=== PATIENT | male | born 1985 | race Caucasian/White ===

== ENCOUNTER 2019-05-25 11:17 | Emergency (ER) | payer BC, OTHER ==
[2019-05-25] MEDS ORDERED: ONDANSETRON HCL INJ/PF 4 MG/2 ML SDV IV ONE (11:57)
[2019-05-25] MEDS ORDERED: NORMAL SALINE 1000 ML 1,000 ML IV ONE (11:57)
[2019-05-25] MEDS ORDERED: KETOROLAC TROMETHAMINE INJ/PF 30 MG/1 ML SDV IV ONE (11:57)
--- NOTE | 2019-05-25 11:59 | ER Document Report ---
ED Medical Screen (RME) - General Chief Complaint: Abdominal Pain Stated Complaint: ABDOMINAL PAIN Time Seen by Provider: 05/25/19 11:54 Primary Care Provider: LG TIDWELL [Primary Care Provider] - Follow up as needed Mode of Arrival: Ambulatory Information source: Patient Notes: 33-year-old male patient presents emergency department with chief complaint of left flank pain that radiates around to the left upper and left lower quadrant of the abdomen. He reports occasional chills but denies any known fevers. Denies current nausea vomiting or diarrhea but reports 2 days ago he was vomiting. He states this pain initially started a few days ago however it ended up resolving on its own and has returned today. He does report a history of kidney stones, states this feels different. I have greeted and performed a rapid initial assessment of this patient. A comprehensive ED assessment and evaluation of the patient, analysis of test results and completion of the medical decision making process will be conducted by additional ED providers. I have specifically instructed the patient or family members with the patient to immediately return to any nursing staff should anything change in the patient's condition or with their chief complaint. - Related Data Allergies/Adverse Reactions: No Known Allergies Allergy (Verified 05/25/19 11:54) Physical Exam - Vital signs Vitals: Temp Pulse Resp BP Pulse Ox 97.6 F 59 L 16 148/93 H 100 05/25/19 11:25 05/25/19 11:05/25/19 11:05/25/19 11:05/25/19 11:25 Course - Vital Signs Vital signs: Temp Pulse Resp BP Pulse Ox 97.6 F 59 L 16 148/93 H 100 05/25/19 11:25 05/25/19 11:25 05/25/19 11:05/25/19 11:05/25/19 11:25 Doctor's Discharge - Discharge Referrals: LG TIDWELL [Primary Care Provider] - Follow up as needed
[2019-05-25 12:28] LABS: ABSOLUTE BASOPHILS # (AUTO) 0.1 10^3/uL (0.0-0.2); ABSOLUTE EOSINOPHILS # (AUTO) 0.2 10^3/uL (0.0-0.6); ABSOLUTE LYMPHOCYTES (AUTO) 2.2 10^3/uL (0.5-4.7); ABSOLUTE MONOCYTES (AUTO) 0.7 10^3/uL (0.1-1.4); HEMOGLOBIN 16.3 g/dL (13.5-17.0); TOTAL CELLS COUNTED % (AUTO) 100 %
[2019-05-25 12:43] LABS: ABSOLUTE NEUT (AUTO) 8.1 10^3/uL (1.7-8.2); BASOPHILS % (AUTO) 0.5 % (0-2); EOSINOPHILS % (AUTO) 1.4 % (0-6); HEMATOCRIT 46.7 % (37.9-51.0); LYMPHOCYTES % (AUTO) 19.3 % (13-45); MEAN CORPUSCULAR HGB CONC 34.9 g/dL (32.0-36.0); MEAN CORPUSCULAR VOLUME 92 fl (80-97); MONOCYTES % (AUTO) 6.6 % (3-13); PLATELET COUNT 205 10^3/uL (150-450); RED BLOOD COUNT 5.09 10^6/uL (4.35-5.55); RED CELL DISTRIBUTION WIDTH 13.9 % (11.5-14.0); SEGMENTED NEUTROPHILS % (AUTO) 72.2 % (42-78); WHITE BLOOD COUNT 11.2 10^3/uL (4.0-10.5)
[2019-05-25 12:52] LABS: AMORPHOUS SEDIMENT,URINE TRACE /HPF; APPEARANCE,URINE CLOUDY; BILIRUBIN,URINE NEGATIVE (NEGATIVE); COLOR,URINE AMBER; GLUCOSE, URINE NEGATIVE (NEGATIVE); KETONES,URINE NEGATIVE (NEGATIVE); LEUKOCYTE ESTERASE,URINE TRACE (NEGATIVE); NITRITE,URINE NEGATIVE (NEGATIVE); PROTEIN,URINE 100 mg/dL (NEGATIVE); URINE SPECIFIC GRAVITY 1.023; UROBILINOGEN,URINE NEGATIVE mg/dL (<2.0)
[2019-05-25 12:54] LABS: ALBUMIN 4.5 g/dL (3.5-5.0); ALKALINE PHOSPHATASE 89 U/L (38-126); ANION GAP 7 (5-19); ASPARTATE AMINO TRANSFERASE 49 U/L (17-59); BILIRUBIN,DIRECT 0.2 mg/dL (0.0-0.4); BILIRUBIN,TOTAL 0.8 mg/dL (0.2-1.3); BLOOD UREA NITROGEN 11 mg/dL (7-20); CALCIUM 9.6 mg/dL (8.4-10.2); CARBON DIOXIDE 29 mmol/L (22-30); CHLORIDE 103 mmol/L (98-107); GLUCOSE 105 mg/dL (75-110); POTASSIUM 4.9 mmol/L (3.6-5.0); TOTAL PROTEIN 8.2 g/dL (6.3-8.2)
--- NOTE | 2019-05-25 17:21 | RADIOLOGY REPORT (SQ) ---
EXAM DESCRIPTION: CT ABD/PELVIS WITH IV ORAL COMPLETED DATE/TIME: 05/25/2019 4:13 pm REASON FOR STUDY: pain/suprapubic LLQ COMPARISON: None. TECHNIQUE: CT scan of the abdomen and pelvis performed using helical scanning technique with dynamic intravenous contrast injection. Patient was given oral contrast. Images reviewed with lung, soft ti ssue, and bone windows. Reconstructed coronal and sagittal MPR images reviewed. Delayed images for ev aluation of the urinary system also acquired. All images stored on PACS. All CT scanners at this facility use dose modulation, iterative reconstruction, and/or weight based d osing when appropriate to reduce radiation dose to as low as reasonably achievable (ALARA). [facility]: Dose Right [facility]: CareDose [facility]: Dose Right [facility]: Teradose 4D [facility]: MOG CONTRAST TYPE AND DOSE: contrast/concentration: Isovue 350.00 mg/ml; Total Contrast Delivered: 91.0 ml; Total Saline Delivered: 70.0 ml RENAL FUNCTION: None required. The patient is less than 50 years old. RADIATION DOSE: CT Rad equipment meets quality standard of care and radiation dose reduction techniq ues were employed. CTDIvol: 7.8 - 7.8 mGy. DLP: 836 mGy-cm.. LIMITATIONS: None. FINDINGS: LOWER CHEST: No significant findings. No nodules or infiltrates. LIVER: Normal size. No masses. No dilated ducts. SPLEEN: Normal size. No focal lesions. PANCREAS: No masses. No significant calcifications. No adjacent inflammation or peripancreatic fluid collections. Pancreatic duct not dilated. GALLBLADDER: No identified stones by CT criteria. No inflammatory changes to suggest cholecystitis. ADRENAL GLANDS: No significant masses or asymmetry. RIGHT KIDNEY AND URETER: No solid masses. No significant calcifications. No hydronephrosis or hyd roureter. LEFT KIDNEY AND URETER: Multifocal patchy areas of hypoattenuation extending to the cortex. No sign ificant calcifications. No hydronephrosis or hydroureter. AORTA AND VESSELS: No aneurysm. No dissection. Renal arteries, SMA, celiac without stenosis. RETROPERITONEUM: No retroperitoneal adenopathy, hemorrhage or masses. BOWEL AND PERITONEAL CAVITY: No masses or inflammatory changes. No free fluid or peritoneal masses. APPENDIX: Normal. PELVIS: No mass. No free fluid. Normal bladder. ABDOMINAL WALL: No masses. No hernias. BONES: No significant or acute findings. OTHER: No other significant finding. IMPRESSION: 1. Patchy areas of cortical hypoattenuation involving the left kidney suggestive of pastora lonephritis. Recommend correlation with urinalysis. Additional consideration would include parenchy mal infarcts or solid renal masses. No nephrolithiasis. No hydronephrosis. 2. No other evidence of acute intra-abdominal/pelvic process. TECHNICAL DOCUMENTATION: JOB ID: [id number] Quality ID # [id number]: Final reports with documentation of one or more dose reduction techniques (e.g., Au tomated exposure control, adjustment of the mA and/or kV according to patient size, use of iterative reconstruction technique) 2010 [employer] All Rights Reserved Reading location - IP/workstation name: [id number]
--- NOTE | 2019-05-25 18:23 | ER Document Report ---
ED General - General Chief Complaint: Flank Pain Stated Complaint: ABDOMINAL PAIN Time Seen by Provider: 05/25/19 11:54 Primary Care Provider: LG TIDWELL [NO LOCAL MD] - Follow up as needed Mode of Arrival: Ambulatory Information source: Patient - [facility] Notes: Patient complains of severe left-sided flank pain and suprapubic pain. He states he had one episode of this approximately 5 days ago that lasted 3 hours. He states he had no more pain until yesterday when the pain began about 12 hours ago and is now not stopped. This pain is moderate. Nothing makes it better or worse. It radiates from the left flank into the suprapubic area. It is const ant and moderate in intensity. He denies any pain or problems with urination. No problems with bowel movement. No problems with eating. No vomiting or diarrhea. - Related Data Allergies/Adverse Reactions: No Known Allergies Allergy (Verified 05/25/19 11:54) Past Medical History - General Information source: Patient - Social History Smoking Status: Current Every Day Smoker Chew tobacco use (# tins/day): No Frequency of alcohol use: Social Drug Abuse: None Family History: Reviewed & Not Pertinent Patient has suicidal ideation: No Patient has homicidal ideation: No Review of Systems - Review of Systems Constitutional: denies: Chills, Fever Cardiovascular: denies: Chest pain, Palpitations Respiratory: denies: Cough, Short of breath Gastrointestinal: Abdominal pain. denies: Diarrhea, Vomiting -: Yes All other systems reviewed and negative Physical Exam - Vital signs Vitals: Temp Pulse Resp BP Pulse Ox 97.6 F 59 L 16 148/93 H 100 05/25/19 11:25 05/25/19 11:25 05/25/19 11:25 05/25/19 11:25 05/25/19 11:25 Interpretation: Normal - General General appearance: Appears well, Alert - HEENT Head: Normocephalic, Atraumatic Eyes: Normal Pupils: PERRL - Respiratory Respiratory status: No respiratory distress Chest status: Nontender Breath sounds: Normal Chest palpation: Normal - Cardiovascular Rhythm: Regular Heart sounds: Normal auscultation Murmur: No - Abdominal Inspection: Normal Distension: No distension Bowel sounds: Normal Tenderness: Tender - Moderate suprapubic tenderness to palpation. No rebound no guarding. There was no significant CVA tenderness bilaterally. Organomegaly: No organomegaly - Back Back: Normal, Nontender - Extremities General upper extremity: Normal inspection, Nontender, Normal color, Normal ROM, Normal temperature General lower extremity: Normal inspection, Nontender, Normal color, Normal ROM, Normal temperature, Normal weight bearing. No: Cyndy's sign - Neurological Neuro grossly intact: Yes Cognition: Normal Orientation: AAOx4 Mark Coma Scale Eye Opening: Spontaneous [place] Coma Scale Verbal: Oriented Mark Coma Scale Motor: Obeys Commands Mark Coma Scale Total: 15 Speech: Normal Motor strength normal: LUE, RUE, LLE, RLE Sensory: Normal - Psychological Associated symptoms: Normal affect, Normal mood - Skin Skin Temperature: Warm Skin Moisture: Dry Skin Color: Normal Course - Re-evaluation Re-evalutation: 05/25/19 18:21 Patient presents with left flank pain that goes into the suprapubic area. He is mildly tender in this area. CAT scan shows pyelonephritis changes versus possible neoplastic changes. I have educated patient about this and the need to follow-up with a urologist. I will start the patient on antibiotics as well. - Vital Signs Vital signs: Temp Pulse Resp BP Pulse Ox 98.1 F 59 L 20 134/82 H 96 05/25/19 15:30 05/25/19 15:30 05/25/19 15:30 05/25/19 15:30 05/25/19 15:30 - Laboratory Result Diagrams: 05/25/19 12:03 05/25/19 12:03 Laboratory results interpreted by me: 05/25/19 05/25/19 12:03 12:05 WBC 11.2 H Urine Protein 100 H Ur Leukocyte Esterase TRACE H - Diagnostic Test Radiology reviewed: Image reviewed, Reports reviewed Discharge - Discharge Clinical Impression: Pyelonephritis Condition: Stable Disposition: HOME, SELF-CARE Instructions: Pyelonephritis ([facility]), Oral Narcotic Medication ([facility]) Additional Instructions: It is very important that you call Dr. Brandt or a urologist as soon as possible to arrange follow-up. Prescriptions: Cefdinir 300 mg PO BID 7 Days #14 capsule Hydrocodone/Acetaminophen [[place] 5-325 mg Tablet] 1 tab PO Q6 PRN 3 Days #12 tablet PRN Reason: Forms: Return to Work Referrals: KADEN BRANDT MD [NO LOCAL MD] - Follow up in 3-5 days
[2019-05-25] MEDS ORDERED: CEFTRIAXONE 1 GM/D5W RTU 1 GM/50 ML RTUPB IV ONE (18:24)
[2019-05-25] MEDS ORDERED: MORPHINE SULFATE 10 MG/ML INJ IV ONE (19:36)
[2019-05-25 19:48] VITALS: BP 136/85
== END 2019-05-25 19:55 | disposition home or self-care (01) ==
LOC: ER 11:17
DX: N12 Tubulo-interstitial nephritis, not specified as acute or chronic (principal); R10.30 Lower abdominal pain, unspecified; F17.200 Nicotine dependence, unspecified, uncomplicated
CPT/HCPCS: 99284; 96361; 96375; 96365; 36415; 83690; 85025; 80053; 81001; 74177; J1885; J2270; J2405; J7030; J0696

== ENCOUNTER 2019-05-26 04:57 | Emergency (ER) | payer OTHER ==
[2019-05-26] MEDS ORDERED: OXYCODONE-ACETAMINOPHEN 5-325 MG TABLET PO ONE (05:43)
[2019-05-26] MEDS ORDERED: KETOROLAC TROMETHAMINE 60 MG/2 ML SDV IM ONE (05:43)
--- NOTE | 2019-05-26 05:46 | ER Document Report ---
ED General - General Chief Complaint: Flank Pain Stated Complaint: ABDOMINAL PAIN Notes: 33-year-old male presents to the ED with ongoing left flank pain radiating to suprapubic region onset several days ago. He has no fevers or chills and no dysuria. He has a family history of bladder cancer. He was seen overnight by a colleague, had a UA showing infection and a CT showing patchy enhancement of the left kidney either infection infarction or neoplasm. He was discharged with pain medicine and antibiotics, but says that he was unable to get to the pharmacy so came back here. His pain is worse, however he says that it was much better after receiving morphine on his previous visit. He still denies fevers and chills. He has been instructed to follow-up with urology. TRAVEL OUTSIDE OF THE [place] IN LAST 30 DAYS: No - Related Data Allergies/Adverse Reactions: No Known Allergies Allergy (Verified 05/25/19 11:54) Home Medications: antibiotic started in er yesterday Past Medical History - Social History Smoking Status: Current Every Day Smoker Smoking Education Provided: Yes - The patient ED visit today was directly related to their abuse of tobacco. Family History: Reviewed & Not Pertinent Patient has suicidal ideation: No Patient has homicidal ideation: No Review of Systems - Review of Systems Notes: REVIEW OF SYSTEMS GEN: Denies fever, chills, weight loss ENT: Denies sore throat, nasal discharge, ear pain EYES: Denies blurry vision, eye pain, discharge CV: Denies chest pain, palpitations, edema RESP: Denies cough, shortness of breath, wheezing GI: Denies abdominal pain, nausea, vomiting, diarrhea MSK: Left-sided back pain SKIN: Denies rash, skin lesions LYMPH: Denies swollen glands/lymph nodes NEURO: Denies headache, focal weakness or numbness, dizziness PSYCH: Denies depression, suicidal or homicidal ideation PHYSICAL EXAMINATION General: No acute distress, well-nourished Head: Atraumatic, normocephalic ENT: Mouth normal, oropharynx moist, no exudates or tonsillar enlargement Eyes: Conjunctiva normal, pupils equal, lids normal Neck: No JVD, supple, no guarding CVS: Normal rate, regular rhythm, no murmurs Resp: No resp distress, equal and normal breath sounds bilaterally GI: Nondistended, soft, no tenderness to palpation, no rebound or guarding Ext: No deformities, no edema, normal range of motion in upper and lower ext Back: Mild left CVA tenderness, no other or midline TTP Skin: No rash, warm Lymphatic: No lymphadeopathy noted Neuro: Awake, alert. Face symmetric. GCS 15. Course - Re-evaluation Re-evalutation: 05/26/19 05:44 Repeat visit for flank pain differential includes infection infarction neoplasm. Already has an outpatient treatment plan, looks well, and can be re-dosed with pain medicine pending pharmacy opening. He knows that he has a history of cancer, smokes, we counseled him on smoking and he will follow-up with urology as scheduled. I have discussed with the patient there likely diagnosis, aftercare plan, follow-up plans and my usual and customary return precautions. They verbalized understanding of this. Discharge - Discharge Clinical Impression: Left flank pain Condition: Good Disposition: HOME, SELF-CARE Additional Instructions: Please follow-up with urology, as outlined in your previous discharge instructions and take all medications which have been prescribed to you.
[2019-05-26] MEDS ORDERED: KETOROLAC TROMETHAMINE INJ/PF 30 MG/1 ML SDV IV ONE (05:54)
[2019-05-26] MEDS ORDERED: HEPARIN SOD (PORCINE) 1,000 UNIT/ML 10 ML VIAL IV ONE (06:45)
[2019-05-26] MEDS ORDERED: HEPARIN SODIUM,PORCINE/D5W 25,000 UNIT/250 ML RTUINJ IV PRN ×2 (06:45→07:00)
[2019-05-26] MEDS ORDERED: HEPARIN SODIUM,PORCINE/D5W 25,000 UNIT/250 ML RTUINJ IV ONE (06:50)
[2019-05-26 06:54] LABS: INTERNATIONAL RATION (INR) 1.03; PROTHROMBIN TIME 13.6 SEC (11.4-15.4)
[2019-05-26 06:55] LABS: PARTIAL THROMBOPLASTIN TIME 33.2 SEC (23.5-35.8)
[2019-05-26] MEDS: RINGERS SOLUTION,LACTATED 1,000 ML IV PRN ×2 (07:17→09:03)
[2019-05-26 07:36] LABS: ABSOLUTE BASOPHILS # (AUTO) 0.1 10^3/uL (0.0-0.2); ABSOLUTE EOSINOPHILS # (AUTO) 0.1 10^3/uL (0.0-0.6); ABSOLUTE LYMPHOCYTES (AUTO) 1.4 10^3/uL (0.5-4.7); ABSOLUTE MONOCYTES (AUTO) 1.1 10^3/uL (0.1-1.4); ABSOLUTE NEUT (AUTO) 12.6 10^3/uL (1.7-8.2); BASOPHILS % (AUTO) 0.4 % (0-2); EOSINOPHILS % (AUTO) 0.4 % (0-6); HEMATOCRIT 38.4 % (37.9-51.0); LYMPHOCYTES % (AUTO) 9.3 % (13-45); MEAN CORPUSCULAR HGB CONC 35.1 g/dL (32.0-36.0); MEAN CORPUSCULAR VOLUME 91 fl (80-97); MONOCYTES % (AUTO) 7.5 % (3-13); PLATELET COUNT 177 10^3/uL (150-450); RED BLOOD COUNT 4.21 10^6/uL (4.35-5.55); RED CELL DISTRIBUTION WIDTH 13.6 % (11.5-14.0); SEGMENTED NEUTROPHILS % (AUTO) 82.4 % (42-78); TOTAL CELLS COUNTED % (AUTO) 100 %; WHITE BLOOD COUNT 15.3 10^3/uL (4.0-10.5)
[2019-05-26 07:38] LABS: HEMOGLOBIN 13.5 g/dL (13.5-17.0)
--- NOTE | 2019-05-26 07:55 | RADIOLOGY REPORT (SQ) ---
CT angiogram abdomen with contrast on 05/26/2019 at 6:51 AM CLINICAL INDICATION: Follow-up abnormal CT, left renal infarct, left-sided pain TECHNIQUE: Multiple axial images are obtained throughout the abdomen following the administration of IV contrast. Computer generated 3-D reconstructions/MIPS were performed. This exam was performed according to our departmental dose-optimization program, which includes automated exposure control, adjustment of the mA and/or kV according to patient size and/or use of iterative reconstruction technique. Total DLP is 711.07 mGy*cm. COMPARISON: 05/25/2019 FINDINGS: There is minimal bibasilar atelectasis. There are persistent peripheral wedge-shaped low-density areas in the mid and lower pole of the left kidney. There are corresponding low density areas of thrombus and clot within segments of the left renal artery. 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 There are two renal arteries bilaterally. The thrombus and clot is within the left main renal artery and begins distal to its bifurcation. 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 The SMA and PIERO are patent and unremarkable. No aortic aneurysm or dissection is noted. No proximal iliac disease is noted. Solid abdominal organs are otherwise unremarkable. There is no abdominal adenopathy. There is no free fluid or free air within the abdomen. There is diverticulosis. The visualized GI tract including the appendix is otherwise unremarkable. No acute bony abnormality is noted. 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 Recommend workup for source of embolic phenomenon and and/or hypercoagulopathy.
[2019-05-26 08:46] LABS: ANION GAP 5 (5-19); BLOOD UREA NITROGEN 10 mg/dL (7-20); CALCIUM 8.7 mg/dL (8.4-10.2); CARBON DIOXIDE 26 mmol/L (22-30); CHLORIDE 104 mmol/L (98-107); GLUCOSE 119 mg/dL (75-110); POTASSIUM 4.2 mmol/L (3.6-5.0)
[2019-05-26] MEDS: HYDROMORPHONE HCL INJ/PF 2 MG/ML AMPULE IV PRN ×3 (09:23→14:29)
[2019-05-26 14:31] VITALS: BP 145/94
== END 2019-05-26 14:45 | disposition short-term general hospital (02) ==
LOC: ER 04:57
DX: N28.0 Ischemia and infarction of kidney (principal); R10.9 Unspecified abdominal pain; M54.9 Dorsalgia, unspecified; F17.200 Nicotine dependence, unspecified, uncomplicated; Z83.2 Family history of diseases of the blood and blood-forming organs and certain disorders involving the immune mechanism
CPT/HCPCS: 96376; 99285; 96375; 96365; 96366; 36415; 85025; 85610; 85730; 80048; 74175; J1644 ×2; J1885; J1170; J7120